=== PATIENT | male | born 1970 | race Caucasian/White ===

== ENCOUNTER 2018-07-22 22:31 | Emergency (ER) | payer OTHER ==
[2018-07-23 00:07] LABS: Basophils % (A) 0 %; Eosinophils # (A) 0.2 k/uL (0-0.7); Eosinophils % (A) 2 %; HCT 44.1 % (39.0-53.0); HGB 14.5 gm/dL (13.0-17.5); Lymphocytes # (A) 2.4 k/uL (1.0-4.8); Lymphocytes % (A) 25 %; MCH 31.1 pg (25.0-35.0); MCHC 32.8 g/dL (31.0-37.0); MCV 94.9 fL (80.0-100.0); Mean Platelet Volume 6.6; Monocytes # (A) 0.6 k/uL (0-1.0); Monocytes % (A) 6 %; Neutrophils # (A) 6.2 k/uL (1.3-7.7); Neutrophils % (A) 65 %; Platelet Count 193 k/uL (150-450); RBC 4.65 m/uL (4.30-5.90); RDW 12.7 % (11.5-15.5); WBC 9.6 k/uL (3.8-10.6)
[2018-07-23 00:16] LABS: ALT 36 U/L (21-72); AST 25 U/L (17-59); Albumin 3.8 g/dL (3.5-5.0); Alkaline Phosphatase 51 U/L (38-126); Anion Gap 6 mmol/L; Blood Urea Nitrogen 12 mg/dL (9-20); Calcium 9.3 mg/dL (8.4-10.2); Carbon Dioxide 28 mmol/L (22-30); Chloride 105 mmol/L (98-107); Glucose 111 mg/dL (74-99); Magnesium 1.8 mg/dL (1.6-2.3); Potassium 3.9 mmol/L (3.5-5.1); Sodium 139 mmol/L (137-145); Total Bilirubin 0.2 mg/dL (0.2-1.3); Total Protein 6.5 g/dL (6.3-8.2)
[2018-07-23 00:28] LABS: Creatine Kinase 83 U/L (55-170)
[2018-07-23 00:31] LABS: INR 0.9 (<1.2); Partial Thromboplastin Time 24.4 sec (22.0-30.0); Prothrombin Time 10.1 sec (9.0-12.0)
[2018-07-23 00:42] LABS: Creatine Kinase MB 0.5 ng/mL (0.0-2.4); Troponin I <0.012 ng/mL (0.000-0.034)
--- NOTE | 2018-07-23 01:38 | XR ---
EXAMINATION TYPE: XR chest 2V DATE OF EXAM: 07/23/2018 COMPARISON: 12/19/2014 HISTORY: Pain TECHNIQUE: Frontal and lateral views of the chest are obtained. FINDINGS: Heart and mediastinum are normal. Lungs are clear. Diaphragm is normal. Bony thorax appear s normal. Pulmonary vascularity is normal. IMPRESSION: Normal chest. No change.
--- NOTE | 2018-07-23 01:58 | ED ---
Chest Pain HPI - General Chief Complaint: Chest Pain Stated Complaint: Chest pain Time Seen by Provider: 07/23/18 00:44 Source: patient Mode of arrival: ambulatory Limitations: no limitations - History of Present Illness Initial Comments: This patient is a 48-year-old man who presents to be evaluated for substernal chest pain. The patient states the pain started about a week ago but was mild. He states that he comes in to be evaluated tonight because while he was watching TV around 9 PM became more intense. Patient denies any anginal symptoms, no dyspnea, diaphoresis, nausea or vomiting, MD Complaint: chest pain Onset/Timin -: week(s) Onset: during rest Pain Location: substernal Pain Radiation: none Severity: moderate Quality: aching Consistency: constant Improves With: nothing Worsens With: nothing Other Symptoms: cough Treatments Prior to Arrival: none - Related Data On Oral Contraceptives: No Allergies Allergy/AdvReac Type Severity Reaction Status Date / Time No Known Allergies Allergy Verified 07/22/18 22:41 Review of Systems ROS Statement: Those systems with pertinent positive or pertinent negative responses have been documented in the HPI. ROS Other: All systems not noted in ROS Statement are negative. Constitutional: Denies: fever, chills Respiratory: Denies: cough, dyspnea Cardiovascular: Reports: as per HPI, chest pain. Denies: palpitations, edema Gastrointestinal: Denies: abdominal pain, nausea, vomiting Musculoskeletal: Denies: back pain Skin: Denies: rash Neurological: Denies: headache, weakness, numbness EKG Findings - EKG Results: EKG: interpreted by BRENDA TRIMBLE, sinus rhythm, normal axis, normal QRS, normal ST/ T, no acute changes - PR, Pacemaker, Normal: Normal tracing: normal tracing Past Medical History Past Medical History: No Reported History History of Any Multi-Drug Resistant Organisms: None Reported Past Surgical History: No Surgical Hx Reported Past Psychological History: No Psychological Hx Reported Smoking Status: Current every day smoker Past Alcohol Use History: Occasional Past Drug Use History: None Reported General Exam Limitations: no limitations General appearance: alert, in no apparent distress Head exam: Present: atraumatic, normocephalic Eye exam: Present: normal appearance. Absent: scleral icterus, conjunctival injection ENT exam: Present: normal oropharynx Neck exam: Present: normal inspection Respiratory exam: Present: normal lung sounds bilaterally, chest wall tenderness (The patient does have some mild tenderness along the sternal border bilaterally.). Absent: respiratory distress, wheezes, rales, rhonchi, stridor Cardiovascular Exam: Present: regular rate, normal rhythm, normal heart sounds. Absent: systolic murmur, diastolic murmur, rubs, gallop GI/Abdominal exam: Present: soft. Absent: distended, tenderness, guarding, rebound, rigid, mass Extremities exam: Present: normal inspection, normal capillary refill. Absent: pedal edema, calf tenderness Back exam: Present: normal inspection. Absent: CVA tenderness (R), CVA tenderness (L) Neurological exam: Present: alert Skin exam: Present: warm, dry, intact, normal color. Absent: rash Course Vital Signs 07/22/18 07/23/18 22:36 00:49 Temperature 98 F Pulse Rate 85 74 Respiratory 16 18 Rate Blood Pressure 136/87 116/77 O2 Sat by Pulse 98 96 Oximetry Disposition Clinical Impression: Chest pain Disposition: HOME SELF-CARE Condition: Good Instructions: Chest Pain (ED) Is patient prescribed a controlled substance at d/c from ED?: No Referrals: Porter Reyes DO [Primary Care Provider] - 1-2 days
[2018-07-23 02:08] VITALS: BP 124/74; PULSE 69; RESP 16; TEMP 98.5
== END 2018-07-23 02:10 | disposition home or self-care (01) ==
LOC: EC 22:31
DX: R07.89 Other chest pain (principal); R05 Cough; F17.200 Nicotine dependence, unspecified, uncomplicated
CPT/HCPCS: 36415; 71046; 80053; 82550; 82553; 83735; 84484; 85025; 85610; 85730; 93005; 99285

== ENCOUNTER → 2018-09-15 | Outpatient (CLI) | payer OTHER ==
--- NOTE | 2018-09-15 13:49 | US ---
EXAMINATION TYPE: US abdomen complete DATE OF EXAM: 09/15/2018 COMPARISON: NONE CLINICAL HISTORY: Chest pain R07.9, Right upper quad pain R10.11. Intermittent chest pain x 1 month, heartburn EXAM MEASUREMENTS: Liver Length: 15.1 cm Gallbladder Wall: 0.2 cm CBD: 0.3 cm Spleen: 11.6 cm Right Kidney: 10.2 x 5.2 x 4.8 cm Left Kidney: 11.2 x 7.0 x 5.9 cm Difficult and limited study due to patient body habitus Pancreas: visualized portions wnl, limited by overlying midline bowel gas Liver: wnl Gallbladder: wnl Evidence for sonographic Tellez's sign: no CBD: visualized portions wnl, limited by overlying bowel gas Spleen: visualized portions wnl, limited by overlying midline bowel gas Right Kidney: 3.7 x 3.9 x 3.7cm cystic area superior pole Left Kidney: wnl Upper IVC: wnl Abd Aorta: visualized portions wnl, limited by overlying midline bowel gas The liver is homogenous. The intrahepatic portion of the IVC and proximal abdominal aorta are within normal limits. There is no evidence of cholelithiasis. Common bile duct is unremarkable. The visu alized portions of the pancreas are homogenous. The spleen is unremarkable. Kidneys are symmetric a nd free of hydronephrosis. IMPRESSION: Slightly limited exam secondary to patient body habitus. 1. No evidence of cholelithiasis or acute cholecystitis. 2. Right upper pole renal cyst measuring 3.9 cm. No hydronephrosis or nephrolithiasis.
--- NOTE | 2018-09-16 08:18 | EST ---
EXERCISE STRESS DATE OF SERVICE: 09/15/2018 INDICATIONS: Chest pain. BASELINE HEART RATE: 77 BASELINE BLOOD PRESSURE: 104/73 MAXIMUM HEART RATE: 150 MAXIMUM BLOOD PRESSURE: 178/50 85% MPHR: 145 100% MPHR: 171 METS: 11.1 MAXIMUM STAGE REACHED: III TOTAL EXERCISE TIME: 9 minutes 30 seconds. CLINICAL INFORMATION: STRESS DATA: Pretesting physical examination showed a heart rate of 77, pressure is 104/73 mmHg. Baseline EKG showed sinus mechanism. The patient exercised on the treadmill according to Terrence protocol for a total of 9 minutes and 30 seconds and achieved 11.1 METs. The max heart rate was 150, which is about 87% of maximum predicted heart rate. Maximum blood pressure was 178/50 mmHg. Clinically the patient did not have any symptoms of chest pain or discomfort and the EKG did not show any significant ST or T-wave abnormalities concerning for ischemia. CONCLUSION: 1. Excellent exercise tolerance. 2. Normal EKG in response to exercise. 3. Essentially normal stress test for the patient. MMODL / IJN: [id number] /
== END | disposition home or self-care (01) ==
LOC: RADUSMAIN 08:20
PROVIDERS: ATTEND Family Medicine
DX: N28.1 Cyst of kidney, acquired (principal); R07.9 Chest pain, unspecified
CPT/HCPCS: 76700; 93017

== ENCOUNTER 2020-02-29 15:58 | Emergency (ER) | payer OTHER ==
[2020-02-29 16:08] VITALS: BP 124/73; PULSE 81; RESP 18; TEMP 98.2
[2020-02-29] MEDS ORDERED: CEPHALEXIN 500 MG CAP PO STA (16:32)
--- NOTE | 2020-02-29 16:32 | ED ---
Skin/Abscess/FB HPI - General Chief complaint: Skin/Abscess/Foreign Body Stated complaint: poss spider bites Time Seen by Provider: 02/29/20 16:12 Source: patient Mode of arrival: ambulatory Limitations: no limitations - History of Present Illness Initial comments: Patient is a 50-year-old male presenting to emergency Department with a chief complaint of a spider bite. Patient reports he believes that he was bitten by a spider approximately 11 days ago. Patient thinks it is a brown recluse spider after he looked up some pictures of what the bites that would look like. Patient states he has no night sweats, fevers, weakness, arthralgias or trellis fatigue. States after the bite on the left leg and 2 separate bites on the left hip, his used a knife and peroxide to to clean the supposedly bite sites. Patient reports there has been improvement in the lesion although he still concerned that it might be a spider bite so he came to the emergency department to be evaluated. Patient denies any discharge at this time. States his tetanus up-to-date. - Related Data Previous Rx's Medication Instructions Recorded Cephalexin [Keflex] 500 mg PO Q6HR 5 Days #20 cap 02/29/20 Allergies Allergy/AdvReac Type Severity Reaction Status Date / Time No Known Allergies Allergy Verified 07/22/18 22:41 Review of Systems ROS Statement: Those systems with pertinent positive or pertinent negative responses have been documented in the HPI. ROS Other: All systems not noted in ROS Statement are negative. Past Medical History Past Medical History: No Reported History History of Any Multi-Drug Resistant Organisms: None Reported Past Surgical History: No Surgical Hx Reported Past Psychological History: No Psychological Hx Reported Smoking Status: Current every day smoker Past Alcohol Use History: Occasional Past Drug Use History: None Reported General Exam Limitations: no limitations General appearance: alert, in no apparent distress Head exam: Present: atraumatic, normocephalic, normal inspection Eye exam: Present: normal appearance, PERRL, EOMI Pupils: Present: normal accommodation ENT exam: Present: normal exam, normal oropharynx, mucous membranes moist, TM's normal bilaterally, normal external ear exam Neck exam: Present: normal inspection, full ROM. Absent: tenderness Respiratory exam: Present: normal lung sounds bilaterally. Absent: respiratory distress, wheezes, rales Cardiovascular Exam: Present: regular rate, normal rhythm, normal heart sounds Extremities exam: Present: full ROM, normal capillary refill. Absent: normal inspection (2 small lesions located on the left hip and one on the left calf. The biggest one is on the calf measuring less than 1 cm diameter. It is a circular lesion with yellow/white clearing the middle. No surrounding cellulitic changes.), tenderness (No tenderness at the lesions.), pedal edema, joint swelling, calf tenderness, other Back exam: Present: normal inspection, full ROM Neurological exam: Present: alert, oriented X3 Psychiatric exam: Present: normal affect, normal mood Skin exam: Present: warm, dry, intact, normal color Course Vital Signs 02/29/20 16:04 Temperature 98.2 F Pulse Rate 81 Respiratory 18 Rate Blood Pressure 124/73 O2 Sat by Pulse 98 Oximetry Medical Decision Making - Medical Decision Making She does 50-year-old male presenting to the emergency department with chief complaint of spider bite. At that he spider bite occurred about 11 days ago, there was no blister formation, black or necrotic regions. His did attempt to perform incision and drainage with a knife and peroxide the same day of the incident. His tetanus is up-to-date. Today the lesions look like they're healing well. There is no signs of infection at this time. Considering that incision and drainage was performed with nonsterile equipment, patient will be covered with Keflex for the next 5 days. Patient was advised to follow-up with primary care physicians. Return parameters were thoroughly discussed with patient's attending agreeable. Case discussed with physician. Disposition Clinical Impression: Insect bite Disposition: HOME SELF-CARE Condition: Stable Instructions (If sedation given, give patient instructions): Insect Bite or Sting (ED) Additional Instructions: Take prescribed medication as directed. Follow with the primary care physician. Return to emergency department if symptoms worsen. Prescriptions: Cephalexin [Keflex] 500 mg PO Q6HR 5 Days #20 cap Is patient prescribed a controlled substance at d/c from ED?: No Referrals: Abram Sevilla III, MD [Primary Care Provider] - 1-2 days Time of Disposition: 16:33
== END 2020-02-29 17:02 | disposition home or self-care (01) ==
LOC: EC 15:58
DX: T63.391A Toxic effect of venom of other spider, accidental (unintentional), initial encounter (principal); F17.200 Nicotine dependence, unspecified, uncomplicated
CPT/HCPCS: 99283

== ENCOUNTER 2020-04-09 17:38 | Emergency (ER) | payer OTHER ==
[2020-04-09 17:53] VITALS: BP 127/79; PULSE 77; RESP 18; TEMP 98.3
[2020-04-09] MEDS ORDERED: PROPARACAINE 0.5% OPHTH DROPS 15 ML BTL LEFT EYE STA (18:13)
[2020-04-09] MEDS ORDERED: FLUORESCEIN STRIPS 1 MG STRIP LEFT EYE ONE (18:16)
[2020-04-09] MEDS ORDERED: TOBRAMYCIN 0.3% OPHTH DROPS 5 ML BTL LEFT EYE STA (18:29)
--- NOTE | 2020-04-09 18:35 | ED ---
General Adult HPI - General Chief complaint: Eye Problems Stated complaint: eye injury Time Seen by Provider: 04/09/20 18:05 Source: patient, RN notes reviewed Mode of arrival: ambulatory Limitations: no limitations - History of Present Illness Initial comments: Patient is a pleasant 50-year-old male presenting to the emergency Department with eye injury. Incident occurred earlier this afternoon. Patient was cutting wood. Patient did have a clean piece of wood go to his left eye. Patient has some mild blurry vision. Patient does have moderate discomfort of the left eyeball. No history of similar symptoms previously. Last tetanus and his patient is less than 10 years. - Related Data Previous Rx's Medication Instructions Recorded Cephalexin [Keflex] 500 mg PO Q6HR 5 Days #20 cap 02/29/20 Allergies Allergy/AdvReac Type Severity Reaction Status Date / Time No Known Allergies Allergy Verified 04/09/20 17:51 Review of Systems ROS Statement: Those systems with pertinent positive or pertinent negative responses have been documented in the HPI. ROS Other: All systems not noted in ROS Statement are negative. Constitutional: Denies: fever Eyes: Reports: as per HPI, eye pain ENT: Denies: ear pain Respiratory: Denies: cough Cardiovascular: Denies: chest pain Endocrine: Denies: fatigue Gastrointestinal: Denies: abdominal pain Genitourinary: Denies: dysuria Musculoskeletal: Denies: back pain Skin: Denies: rash Neurological: Denies: weakness Past Medical History Past Medical History: No Reported History History of Any Multi-Drug Resistant Organisms: None Reported Past Surgical History: No Surgical Hx Reported Past Psychological History: No Psychological Hx Reported Smoking Status: Current every day smoker Past Alcohol Use History: Occasional Past Drug Use History: None Reported General Exam Limitations: no limitations General appearance: alert, in no apparent distress Head exam: Present: normocephalic Eye exam: Present: normal appearance, PERRL, EOMI. Absent: nystagmus, periorbital swelling, periorbital tenderness Pupils: Present: other (Flurosyn stain with uptake just superior to the pupil. Kellee sign is negative.) ENT exam: Present: normal exam Respiratory exam: Present: normal lung sounds bilaterally Cardiovascular Exam: Present: regular rate, normal rhythm GI/Abdominal exam: Present: soft. Absent: tenderness Extremities exam: Present: normal inspection Neurological exam: Present: alert, CN II-XII intact Psychiatric exam: Present: normal affect, normal mood Skin exam: Present: normal color Course Vital Signs 04/09/20 17:48 Temperature 98.3 F Pulse Rate 77 Respiratory 18 Rate Blood Pressure 127/79 O2 Sat by Pulse 99 Oximetry Disposition Clinical Impression: Corneal abrasion Disposition: HOME SELF-CARE Condition: Stable Instructions (If sedation given, give patient instructions): Corneal Abrasion (ED) Additional Instructions: Please follow-up with primary care physician or chip drier in the next day or 2 for recheck. Return for worsening vision, increased drainage, redness, fevers or swelling, worsening symptoms or other concerns. Use antibiotic eyedrops: 2 drops every 4 hours while awake for one week Is patient prescribed a controlled substance at d/c from ED?: No Referrals: Abram Sevilla III, MD [Primary Care Provider] - 1-2 days Time of Disposition: 18:35
== END 2020-04-09 18:45 | disposition home or self-care (01) ==
LOC: EC 17:38
DX: S05.02XA Injury of conjunctiva and corneal abrasion without foreign body, left eye, initial encounter (principal); F17.200 Nicotine dependence, unspecified, uncomplicated; W22.8XXA Striking against or struck by other objects, initial encounter; Y93.89 Activity, other specified
CPT/HCPCS: 99283

== ENCOUNTER 2022-08-08 06:34 | Emergency (ER) | payer OTHER ==
[2022-08-08 06:51] VITALS: RESP 16; TEMP 97.8
--- NOTE | 2022-08-08 08:12 | XR ---
EXAMINATION TYPE: XR hand complete RT, XR wrist complete RT DATE OF EXAM: 08/08/2022 7:54 AM INDICATION: Patient age:Male; 52 years old; Reason for study: pain, trauma; PHH. COMPARISON: None TECHNIQUE: Frontal, lateral and oblique views of the right hand were obtained. PA, lateral, oblique, and navicular views of the right wrist. FINDINGS: Normal alignment of the visualized joints. No acute osseous pathology is identified. No di slocation. Mild soft tissue swelling of the wrist. IMPRESSION: 1. No acute osseous pathology. 2. Mild soft tissue swelling of the wrist.
--- NOTE | 2022-08-08 08:29 | ED ---
Trauma HPI - General Chief Complaint: Extremity Injury, Upper Stated Complaint: right wrist injury Time Seen by Provider: 08/08/22 07:20 Source: patient Mode of arrival: ambulatory Limitations: no limitations - History of Present Illness Initial Comments: 52-year-old male presents emergency room reporting right hand pain. States that he hit his hand on a cigarette rollover. The equipment is made of steel and weighs approximately 3 pounds. States that he hit the back of his hands last night on it. He has had some bruising and swelling over his wrist and his concern for fracture. Denies any numbness or tingling into his fingers. Patient is left-hand dominant. Has not taken anything for pain at home. No elbow or shoulder pain. No alleviating, precipitating or modifying factors - Related Data Previous Rx's Medication Instructions Recorded Cephalexin [Keflex] 500 mg PO Q6HR 5 Days #20 cap 02/29/20 Ibuprofen [Motrin] 600 mg PO Q6HR PRN #30 tab 08/08/22 Allergies Allergy/AdvReac Type Severity Reaction Status Date / Time No Known Allergies Allergy Verified 04/09/20 17:51 Review of Systems ROS Statement: Those systems with pertinent positive or pertinent negative responses have been documented in the HPI. ROS Other: All systems not noted in ROS Statement are negative. Past Medical History Past Medical History: No Reported History History of Any Multi-Drug Resistant Organisms: None Reported Past Surgical History: No Surgical Hx Reported Past Psychological History: No Psychological Hx Reported Smoking Status: Current every day smoker Past Alcohol Use History: Occasional Past Drug Use History: None Reported General Exam Limitations: no limitations General appearance: alert, in no apparent distress Head exam: Present: atraumatic, normocephalic, normal inspection Extremities exam: Present: other (tenderness over distal radius/ulna on the right ecchymosis posterior right hand. intact full ROM. 2+ radial and ulnar pusles. compartments are soft) Course Vital Signs 08/08/22 08/08/22 06:47 08:39 Temperature 97.8 F Pulse Rate 77 62 Respiratory 16 Rate Blood Pressure 153/94 144/90 O2 Sat by Pulse 97 96 Oximetry Medical Decision Making - Medical Decision Making Was pt. sent in by a medical professional or institution? no Did you speak to anyone other than the patient for history? no Did you review nursing and triage notes? yes and I agree Were old charts reviewed? no Differential Diagnosis? sprain, strain, fracture, tendonitis, compartment syndrome, crush injury EKG interpreted by me (3pts min.)? no X-rays interpreted by me (1pt min.)? yes CT interpreted by me (1pt min.)? no U/S interpreted by me (1pt. min.)? no What testing was considered but not performed? (CT, X-rays, U/S, labs)? Why? none What meds were considered but not given? Why? pain meds - refused in ED Did you discuss the management of the patient with other professionals? no Did you reconcile home meds? no Was smoking cessation discussed for >3mins.? yes Was critical care preformed (if so, how long)? no Were there social determinants of health that impacted care today? How? (Homelessness, low income, unemployed, alcoholism, drug addiction, transportation, low edu. Level, literacy, decrease access to med. care, half-way, rehab)? no Was there de-escalation of care discussed even if they declined? (Discuss DNR or withdrawal of care, Hospice)? no What co-morbidities impacted this encounter? (DM, HTN, Smoking, COPD, CAD, Cancer, CVA, Hep., AIDS, mental health diagnosis, sleep apnea, morbid obesity)? none Was patient admitted / discharged? Upon arrival patient was placed into room 11. Thorough history and physical exam was performed. X-ray performed of the right wrist and hand. No acute fractures. Patient has no scaphoid pain. He is placed in an Rajiv bandage. Instructed to rest, ice and elevate. Kraig called into the pharmacy. If he has persistent pain he needs it reimaged in 7-10 days per patient was agreeable to this and he was discharged home in stable condition Undiagnosed new problem with uncertain prognosis? yes Drug Therapy requiring intensive monitoring for toxicity (Heparin, Nitro, Insulin, Cardizem)? no Were any procedures done? no Diagnosis/symptom? acute right hand strain Acute, or Chronic, or Acute on Chronic? acute Uncomplicated (without systemic symptoms) or Complicated (systemic symptoms)? uncomplicated Side effects of treatment? none Exacerbation, Progression, or Severe Exacerbation] none Poses a threat to life or bodily function? no Disposition Clinical Impression: Wrist pain, right Disposition: HOME SELF-CARE Condition: Stable Instructions (If sedation given, give patient instructions): Wrist Injury (ED) Additional Instructions: Rest, ice and elevate the extremity. Please take Motrin every 6 hours as needed for pain. Repeat xray in 7-10 days if your pain persists. Prescriptions: Ibuprofen [Motrin] 600 mg PO Q6HR PRN #30 tab PRN Reason: Pain Is patient prescribed a controlled substance at d/c from ED?: No Referrals: Abram Sevilla III, MD [Primary Care Provider] - 1-2 days Time of Disposition: 08:29
[2022-08-08 08:40] VITALS: BP 144/90; PULSE 62
== END 2022-08-08 08:41 | disposition home or self-care (01) ==
LOC: SUPCPDRO 06:34 → EC 06:34
DX: M25.531 Pain in right wrist (principal); F17.200 Nicotine dependence, unspecified, uncomplicated; W22.8XXA Striking against or struck by other objects, initial encounter
CPT/HCPCS: 99283

== ENCOUNTER → 2022-10-20 | Outpatient (CLI) | payer OTHER ==
[2022-10-20 14:52] LABS: Basophils # (A) 0.05 X 10*3/uL (0.00-0.10); Basophils % (A) 0.3 %; Eosinophils # (A) 0.09 X 10*3/uL (0.04-0.35); Eosinophils % (A) 0.5 %; HCT 44.6 % (39.6-50.0); HGB 14.1 g/dL (13.0-17.0); Immature Grans, Automated 0.3 %; Lymphocytes # (A) 2.78 X 10*3/uL (0.90-5.00); Lymphocytes % (A) 16.5 %; MCH 30.7 pg (27.0-32.0); MCHC 31.6 g/dL (32.0-37.0); Mean Platelet Volume 9.4 fL (9.5-12.2); Monocytes # (A) 1.25 X 10*3/uL (0.20-1.00); Monocytes % (A) 7.4 %; NRBC Per 100 WBC 0 /100 WBCS (0.0-0.0); Neutrophils # (A) 12.59 X 10*3/uL (1.80-7.70); Platelet Count 200 X 10*3/uL (140-440); RDW 13.2 % (11.5-14.5); WBC 16.81 X 10*3/uL (4.50-10.00)
[2022-10-20 19:43] LABS: ALT 29 U/L (10-49); AST 24 U/L (14-35); African American GFR (CKD) 112.6 (60.0-200.0); Albumin 4.3 g/dL (3.8-4.9); Albumin/Globulin Ratio 1.87 (1.60-3.17); Alkaline Phosphatase 80 U/L (41-126); Blood Urea Nitrogen 12.6 mg/dL (9.0-27.0); Calcium 9.5 mg/dL (8.7-10.3); Carbon Dioxide 24.6 mmol/L (20.0-27.5); Chloride 104 mmol/L (96-109); Chol/HDL Ratio 4.26 Ratio; Globulin 2.3 g/dL (1.6-3.3); Glucose 100 mg/dL (70-110); LDL Cholesterol,Calculated 91.7 mg/dL (0.0-131.0); Non-African American GFR(CKD) 97.2 (60.0-200.0); Potassium 4.4 mmol/L (3.5-5.5); Sodium 141 mmol/L (135-145); Total Protein 6.6 g/dL (6.2-8.2)
== END | disposition home or self-care (01) ==
LOC: LABWHC1 09:26
PROVIDERS: ATTEND Family Medicine
DX: Z00.01 Encounter for general adult medical examination with abnormal findings (principal); Z13.220 Encounter for screening for lipoid disorders; Z13.29 Encounter for screening for other suspected endocrine disorder; Z12.5 Encounter for screening for malignant neoplasm of prostate; Z12.2 Encounter for screening for malignant neoplasm of respiratory organs; Z12.11 Encounter for screening for malignant neoplasm of colon; K21.9 Gastro-esophageal reflux disease without esophagitis; M54.50 Low back pain, unspecified; F17.210 Nicotine dependence, cigarettes, uncomplicated; M25.551 Pain in right hip; M25.552 Pain in left hip; R35.1 Nocturia
CPT/HCPCS: 36415; 80053; 80061; 82306; 84153; 84443; 85025

== ENCOUNTER → 2022-11-20 | Outpatient (CLI) | payer OTHER ==
--- NOTE | 2022-11-21 08:25 | XR ---
EXAMINATION TYPE: XR lumbosacral spine 5 views AP view pelvis and 2 views each hip DATE OF EXAM: 11/20/2022 Comparison: None Clinical History: 52-year-old male M54.50 Findings: Lumbar spine: 5 lumbar type vertebral bodies. Facet arthropathy mid to lower lumbar spine. There is mild multilevel degenerative disc disease. Trace grade 1 anterolisthesis L4-L5. Vertebral body heights are preserved and alignment is maintained. Pelvis and hips: Mild degenerative change of both hips with marginal spurring. Relative preservation of hip joint spac e on both sides. No acute fracture, subluxation, dislocation seen. There may be mild degenerative spu rring of the right SI joint. Impression: 1. Lumbar spine: Facet arthropathy mid to lower lumbar spine. Mild multilevel degenerative disc disea se. Trace grade 1 anterolisthesis L4-L5. 2. Pelvis and hips: Mild bilateral hip OA. There may be mild degenerative change of the right SI join t. No acute osseous abnormality seen.
== END | disposition home or self-care (01) ==
LOC: RADXRMAIN 16:58
PROVIDERS: ATTEND Family Medicine
DX: M47.816 Spondylosis without myelopathy or radiculopathy, lumbar region (principal); M43.16 Spondylolisthesis, lumbar region; M16.0 Bilateral primary osteoarthritis of hip; M51.36 Other intervertebral disc degeneration, lumbar region
CPT/HCPCS: 72110; 73521

== ENCOUNTER → 2022-11-20 | Outpatient (CLI) | payer OTHER ==
--- NOTE | 2022-11-23 19:45 | CTL ---
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 Lung cancer screenin g CT DLP: 92.[address] CTDI: 2.6 mGy Automated exposure control for dose reduction was used. SCREENING VISIT: Baseline COMPARISON: None TECHNIQUE: Low dose computed tomography scan was performed through the chest with coronal and sagitta l reconstructions. CT DIAGNOSTIC QUALITY: Satisfactory FINDINGS: Heart is normal size without pericardial effusion. Ectatic ascending aorta at 3.8 cm. There is conventional arch vessel branching anatomy. No thoracic lymphadenopathy by CT size criteria. There are scattered mild to moderate diffuse bronchial wall thickening. No consolidation or pleural e ffusion. 4 mm lateral left lower lobe pulmonary nodule, axial image 27. 4 mm anterior right upper lobe pulmonary nodule, axial image 67. 6 mm anterior right midlung pulmonary nodule, axial image 134. 4 mm posterior right lower lobe pulmonary nodule, axial image 197. 3 mm subpleural pulmonary nodule posterior left lower lobe, axial image 212. There is a tiny hiatal hernia. Partially visualized exophytic cyst lateral right kidney measuring up to 5.7 cm. Bones: DISH lower thoracic spine. IMPRESSION: 1. LungRADS Category 3 (probably benign, 1-2% chance of malignancy); a few scattered pulmonary nodule s measuring up to 6 mm on baseline screening. 2. Bronchial wall thickening suggests bronchitis or chronic asthma. Recommend smoking cessation. 3. Tiny hiatal hernia. CT LUNG RAD AND CT CHEST RECOMMENDATION: Lung-Rad 3 Probably Benign: 6 month follow-up LDCT. S Modifier (other clinically significant findings): None
== END | disposition home or self-care (01) ==
LOC: RADCTMAIN 16:43
PROVIDERS: ATTEND Family Medicine
DX: Z12.2 Encounter for screening for malignant neoplasm of respiratory organs (principal); F17.210 Nicotine dependence, cigarettes, uncomplicated; J98.09 Other diseases of bronchus, not elsewhere classified; K44.9 Diaphragmatic hernia without obstruction or gangrene; R91.8 Other nonspecific abnormal finding of lung field
CPT/HCPCS: 71271

== ENCOUNTER 2023-07-05 09:41 | Emergency (ER) | payer OTHER ==
[2023-07-05 10:10] VITALS: TEMP 97.8
--- NOTE | 2023-07-05 10:44 | ED ---
Abdominal Pain HPI - General Chief Complaint: Abdominal Pain Stated Complaint: bowel obstruction Time Seen by Provider: 07/05/23 10:04 Source: patient, RN notes reviewed Mode of arrival: ambulatory Limitations: no limitations - History of Present Illness Initial Comments: This is a 53-year-old male who presents to the emergency department for abdominal pain and constipation. States that he had been constipated for 2-3 days, only producing liquid stool with occasional nausea and abdominal pain. He was not taking any stool softeners. However, after he arrived in the emergency department, he did have a large bowel movement, and states that he essentially filled up the whole toilet bowl and he felt much better. He has never had a problem with constipation like this in the past. Denies any blood in the stool. He has never had a colonoscopy or ever been diagnosed with diverticulitis. MD Complaint: abdominal pain - Related Data Home Medications Medication Instructions Recorded Confirmed Omeprazole 20 mg PO 07/05/23 Previous Rx's Medication Instructions Recorded Lactulose 10 gm PO BID PRN #237 ml 07/05/23 Allergies Allergy/AdvReac Type Severity Reaction Status Date / Time No Known Allergies Allergy Verified 07/05/23 09:59 Review of Systems ROS Statement: Those systems with pertinent positive or pertinent negative responses have been documented in the HPI. ROS Other: All systems not noted in ROS Statement are negative. Past Medical History Past Medical History: GERD/Reflux History of Any Multi-Drug Resistant Organisms: None Reported Past Surgical History: No Surgical Hx Reported Past Psychological History: No Psychological Hx Reported Smoking Status: Current every day smoker Past Alcohol Use History: Occasional Past Drug Use History: None Reported General Exam Limitations: no limitations General appearance: alert, in no apparent distress Head exam: Present: atraumatic, normocephalic, normal inspection Respiratory exam: Present: normal lung sounds bilaterally. Absent: respiratory distress, wheezes, rales, rhonchi, stridor Cardiovascular Exam: Present: regular rate, normal rhythm, normal heart sounds. Absent: systolic murmur, diastolic murmur, rubs, gallop, clicks GI/Abdominal exam: Present: soft, normal bowel sounds. Absent: distended, tenderness, guarding, rebound, rigid Neurological exam: Present: alert, oriented X3, CN II-XII intact Psychiatric exam: Present: normal affect, normal mood Skin exam: Present: warm, dry, intact, normal color. Absent: rash Course Vital Signs 07/05/23 07/05/23 10:00 12:31 Temperature 97.8 F Pulse Rate 90 89 Respiratory 18 17 Rate Blood Pressure 111/75 144/82 O2 Sat by Pulse 98 96 Oximetry Medical Decision Making - Medical Decision Making This is a 53-year-old male who presents to the emergency department for abdominal pain and constipation. Was pt. sent in by a medical professional or institution? @ -No Did you speak to anyone other than the patient for history? @ -No Did you review nursing and triage notes? @ -Yes, and I agree, it is accurate with regards to the patient's symptoms. Were old charts reviewed? @ -No Differential Diagnosis? @ -Differential Abdominal Pain Men: Appendicitis, cholecystitis, diverticulosis, ischemic bowel, pancreatitis, hepatitis, UTI, gastroenteritis, AAA, incarcerated hernia, bowel obstruction, constipation, inflammatory bowel, hepatitis, peptic ulcer disease, splenic infarction, perforated viscus, testicular torsion, this is not meant to be an all-inclusive list EKG interpreted by me (3pts min.)? @ -Not obtained X-rays interpreted by me (1pt min.)? @ -KUB x-ray obtained. My interpretation identifies no evidence of free air. CT interpreted by me (1pt min.)? @ -Not obtained U/S interpreted by me (1pt. min.)? @ -Not obtained What testing was considered but not performed? (CT, X-rays, U/S, labs)? Why? @ -None What meds were considered but not given? Why? @ -None Did you discuss the management of the patient with other professionals? @ -No Did you reconcile home meds? @ -No Was smoking cessation discussed for >3mins.? @ -I discussed smoking cessation for greater than 3 minutes. The risk of smoking were discussed with the patient including but not limited to risks of cancer, stroke, coronary artery disease and COPD. Also discussed with patient were multiple methods of quitting smoking. Lastly we discussed the financial cost of smoking. Was critical care preformed (if so, how long)? @ -No Were there social determinants of health that impacted care today? How? (Homelessness, low income, unemployed, alcoholism, drug addiction, transportation, low edu. Level, literacy, decrease access to med. care, residential, rehab)? @ -No Was there de-escalation of care discussed even if they declined? (Discuss DNR or withdrawal of care, Hospice)? @ -No What co-morbidities impacted this encounter? (DM, HTN, Smoking, COPD, CAD, Cancer, CVA, Hep., AIDS, mental health diagnosis, sleep apnea, morbid obesity)? @ -None Was patient admitted / discharged? @ -Discharged. On evaluation of the patient, he states that while in the emergency department he produced a very large bowel movement and started to feel much better. We did obtain a KUB x-ray, which demonstrated fecal material and gas throughout the colon. Findings reviewed with the patient. He was given a prescription for lactulose and advised to increase his fluid intake. Otherwise advised follow up with his primary care provider. Patient discharged home in stable condition. Undiagnosed new problem with uncertain prognosis? @ -None Drug Therapy requiring intensive monitoring for toxicity (Heparin, Nitro, Insulin, Cardizem)? @ -None Were any procedures done? @ -None Diagnosis/symptom? @ -Constipation Acute, or Chronic, or Acute on Chronic? @ -Acute Uncomplicated (without systemic symptoms) or Complicated (systemic symptoms)? @ -Uncomplicated Side effects of treatment? @ -None Exacerbation, Progression, or Severe Exacerbation] @ -Not applicable Poses a threat to life or bodily function? @ -No Return precautions reviewed in depth, the patient is instructed to return to the emergency department with any new, worsening, or concerning symptoms. Patient verbalized understanding. This case was discussed in detail with the attending ED physician, Dr. Salas. Presentation, findings, and treatment plan discussed in detail as well. - Radiology Data Radiology results: report reviewed, image reviewed Disposition Clinical Impression: Constipation, Nicotine dependence Disposition: HOME SELF-CARE Instructions (If sedation given, give patient instructions): Constipation (ED) Additional Instructions: Return to the emergency department with any new, worsening, or concerning symptoms. Take the lactulose twice daily as needed for constipation. Make sure that you remain well-hydrated. Follow up with your primary care provider in 1-2 days. Prescriptions: Lactulose 10 gm PO BID PRN #237 ml PRN Reason: Constipation Is patient prescribed a controlled substance at d/c from ED?: No Referrals: Karan Benitez MD [Primary Care Provider] - 1-2 days
--- NOTE | 2023-07-05 10:50 | XR ---
EXAMINATION TYPE: XR KUB DATE OF EXAM: 07/05/2023 10:32 AM CLINICAL INDICATION:Male, 53 years old with history of Abdominal pain, constipation; [facility] COMPARISON: None. TECHNIQUE: One radiographic view of the abdomen was obtained. FINDINGS: The bowel gas pattern is nonspecific without dilated loops of small or large bowel. There i s no evidence for organomegaly or pneumoperitoneum. The osseous structures are intact. No abnormal calcifications are present. Fecal material and gas are demonstrated throughout the colon and rectum. Degeneration changes of the hips with osteophyte formation of the superior acetabulum. Multilevel de generation changes of the spine. IMPRESSION: Nonspecific bowel gas pattern without radiographic evidence for acute process.
[2023-07-05 12:33] VITALS: BP 144/82; PULSE 89; RESP 17
== END 2023-07-05 12:32 | disposition home or self-care (01) ==
LOC: EC 09:41
DX: K59.00 Constipation, unspecified (principal); F17.200 Nicotine dependence, unspecified, uncomplicated; K21.9 Gastro-esophageal reflux disease without esophagitis; Z79.899 Other long term (current) drug therapy
CPT/HCPCS: 74018; 99284; 99406

== ENCOUNTER → 2023-07-13 | Outpatient (CLI) | payer OTHER ==
[2023-07-13 08:44] LABS: Basophils % (A) 0 %; Eosinophils # (A) 0.1 k/uL (0-0.7); Eosinophils % (A) 1 %; HCT 43.5 % (39.0-53.0); HGB 14.3 gm/dL (13.0-17.5); Lymphocytes # (A) 1.8 k/uL (1.0-4.8); Lymphocytes % (A) 16 %; MCH 32.1 pg (25.0-35.0); MCHC 32.9 g/dL (31.0-37.0); MCV 97.7 fL (80.0-100.0); Mean Platelet Volume 7.3; Monocytes # (A) 0.8 k/uL (0-1.0); Monocytes % (A) 7 %; Neutrophils # (A) 8.6 k/uL (1.3-7.7); Neutrophils % (A) 75 %; Platelet Count 213 k/uL (150-450); RBC 4.45 m/uL (4.30-5.90); WBC 11.5 k/uL (3.8-10.6)
[2023-07-13 15:43] LABS: Albumin 4.2 g/dL (3.8-4.9); Protein, Total 6.4 g/dL (6.2-8.2)
[2023-07-13 17:30] LABS: HIV 2 AB Non-Reactive (Non-Reactive); HIV AB P24 Non-Reactive (Non-Reactive); HIV P24 AG Non-Reactive (Non-Reactive)
[2023-07-14 16:49] LABS: Gamma Globulin 0.93 g/dL (0.70-1.50)
== END | disposition home or self-care (01) ==
LOC: LABWHC1 07:45
PROVIDERS: ATTEND Internal Medicine
DX: D72.829 Elevated white blood cell count, unspecified (principal)
CPT/HCPCS: 36415; 83615; 84165; 85025; 86038; 86039; 87390

== ENCOUNTER → 2023-07-22 | Outpatient (CLI) | payer OTHER ==
--- NOTE | 2023-07-23 15:18 | CTL ---
EXAMINATION TYPE: CT Low Dose Lung DATE OF EXAM ORDERED: 07/22/2023 HISTORY: . Lung cancer screening CT DLP: 151.[address] CTDI: 4.2 mGy Automated exposure control for dose reduction was used. SCREENING VISIT: Follow-up COMPARISON: 11/20/2022 TECHNIQUE: Low dose computed tomography scan was performed through the chest at 1 mm thick sections a nd reconstructed images in the coronal plane at [address] DIAGNOSTIC QUALITY: Satisfactory FINDINGS: LUNG NODULES: None. 1. There is a punctate nodule in the periphery of the left lower lobe. Series 4 image 219, stable fro m comparison. 2. There is a 0.4 cm nodule within the periphery of the left lung. Series 4, image 201, stable from p revious. 3. There is a focal linear density posterior lateral right lung, series 4 image image 208, stable fro m comparison. 4. 0.6 cm nodule right anterior mid lung, series 4 image 149. LUNGS: COPD: Severity: None Fibrosis: Severity: None Lymph nodes: None Other findings: None RIGHT PLEURAL SPACE: Effusion: None Calcification: None Thickening: None Pneumothorax: None LEFT PLEURAL SPACE: Effusion: None Calcification: None Thickening: None Pneumothorax: None HEART: Heart Size: Normal Coronary calcification: None Pericardial effusion: None OTHER FINDINGS: Upper abdomen: Normal Bony thorax: Normal Supraclavicular region: Normal Other: Ascending thoracic aorta at the level the main pulmonary artery measures 3.5 cm. The main pul monary artery at the bifurcation measures 2.5 cm. IMPRESSION: 1. Stable scattered small nodules. Continued short-term follow-up recommended. FOLLOW UP CT CHEST RECOMMENDATION: Follow up low-dose CT chest [address] LUNG RAD: Lung-Rad 3 Probably Benign
== END | disposition home or self-care (01) ==
LOC: RADCTMAIN 16:26
PROVIDERS: ATTEND Internal Medicine
DX: Z12.2 Encounter for screening for malignant neoplasm of respiratory organs (principal); R91.1 Solitary pulmonary nodule; R91.8 Other nonspecific abnormal finding of lung field; F17.210 Nicotine dependence, cigarettes, uncomplicated
CPT/HCPCS: 71271